=== PATIENT | male | born 1980 | race Caucasian/White ===

== ENCOUNTER 2021-11-19 09:43 | Outpatient (REF) | payer MEDICARE, MEDICAID, SELFPAY ==
[2021-11-19 11:28] LABS: Estimated Average Glucose 292 mg/dL; Hemoglobin A1c % 11.8 %
[2021-11-19 11:42] LABS: Appearance Urine CLEAR; Color Urine YELLOW; Glucose Urine UA 500 MG/DL (NEG); Leukocyte Esterase Urine NEG (NEG); Nitrite Urine NEG (NEG); Specific Gravity - Urine >= 1.030 (1.005-1.025); UACC Culture Trigger NO; Urine Blood NEG (NEG); Urine Ketones 40 MG/DL (NEG); Urine Protein 2+ MG/DL (NEG-TRACE)
[2021-11-19 11:48] LABS: Alanine Aminotransferase 79 U/L (0-40); Albumin Level 4.3 g/dL (3.5-5.0); Alkaline Phosphatase 146 U/L (39-117); Anion Gap 15 (12-20); Aspartate Amino Transferase 31 U/L (5-37); Blood Urea Nitrogen 14 mg/dL (9-16); Calcium 9.3 mg/dL (8.4-10.2); Carbon Dioxide 24 mmol/L (22-29); Chloride 96 mmol/L (96-108); Cholesterol 245 mg/dL; Estimated Glomerular Filt Rate > 60; Glucose Fasting 361 mg/dL (60-99); HDL Cholesterol 31 mg/dL; Potassium 4.7 mmol/L (3.3-5.1); Sodium 130 mmol/L (135-145); Total Protein 7.1 g/dL (6.5-8.0); Triglycerides 462 mg/dL
[2021-11-19 11:58] LABS: TSH reflex Free T4 1.97 uIU/mL (0.32-4.0)
[2021-11-19 12:04] LABS: RBC Urine 0 /HPF (0); Squamous Epithelial Cell Urine 2+ /LPF
[2021-11-19 12:16] LABS: Microalbum/Creatinine Ratio Ur 109.4 ug/mg cr
== END 2021-11-19 09:44 | disposition home or self-care (01) ==
LOC: HO.HMGCLDS 09:43
PROVIDERS: Visit Provider Nurse Practitioner Family
DX: E11.65 Type 2 diabetes mellitus with hyperglycemia (principal)
CPT/HCPCS: 36415; 80053; 80061; 81001; 82043; 83036; 84443

== ENCOUNTER 2024-02-13 13:49 | Outpatient (AMB) | payer OTHER, MEDICAID, SELFPAY ==
--- NOTE | 2024-02-13 13:54 | A.OFFPC_ITS ---
Vital Signs 02/13/24 13:57 Height 5 ft 11 in Weight 224 lb BMI 31.2 BP 130/80 Blood Pressure Location Lt brachial Position Sitting Pulse 80 Pulse Source Pulse Oximeter Pulse Oximetry (%) 98 Oxygen Delivery Method Room Air Intake Visit Reasons: diabetes follow up Intake Note: Patient here for DM f/u. Allergies UNKNOWN Allergy (Unknown, Uncoded 02/13/24 14:49) WAS TOLD HAD AN ALLERGIC REACTION TO ANESTHESIA Medication List - Last Reconciled 02/13/24 by CINTHYA Mon alcohol swabs (Alcohol Prep Pads) topical test TID; blood sugar diagnostic (FreeStyle Lite Strips) tid tesing blood-glucose meter (FreeStyle Lite Meter kit) diabetes cyclobenzaprine 10 mg PO BEDTIME PRN 20 days insulin glargine (Lantus Solostar U-100 Insulin) 35 units (0.35 mL) subcut DAILY 30 days lancets (BD Ultra-Fine II Lancets) tid testing lancets (FreeStyle Lancets) tid testing metformin 500 mg PO BID 30 days pen needle, diabetic (BD Ultra-Fine Short Pen Needle) once before bed Tobacco use date assessed: 02/13/24 Dental Screening Dental Screen Date: 02/13/24 Did you have a dental visit in the last 12 months?: Yes Did you have a dental problem in the last 6 months where you did not have access to dental care?: No Was dental information given to patient?: Patient has dentist HPI diabetes follow up HPI Details Pt is an uncontrolled diabetic. A1C in office today is >14. Due for microalbumin. Denies polyuria, polydipsia, and neuropathy. Pt denies any signs and symptoms of hypoglycemia and does know how to correct it. Pt has not been taking his insulin regularly, will resend this. Reenforced the importance of tight glucose control. Pt reports macular erythema (tinea) to his inguinal, pelvic, and left lower abdomen regions. Will assess labs and possibly treat with oral med. Pt reports a large skin tag to his back. Will refer to derm. [facility] Medical History Severe obstructive sleep apnea Xiphoidalgia Uncontrolled type 2 diabetes mellitus with hyperglycemia Family History Father No problems noted. Mother Diabetes Social History Housing: House Patient Tobacco Use Status: Current everyday Tobacco user e-Cigarette/Vaping Use: Never Used service: No Current occupational status: disabled Cognitive needs: No Hearing needs: No Vision needs: No Questionnaire PHQ-9 Over the last 2 weeks, how often have you been bothered by any of the following problems? 22026 - PHQ-9 Billing: Patient declined-do not bill Source: Developed by Drs. Hever Ortega, Gurpreet Herrera and colleagues, with an educational meliza from [employer]. Thrive Questionnaire Date Thrive assessed: 11/22/21 AUDIT C Alcohol Use Questionnaire (AUDIT-C) 1. How often do you have a drink containing alcohol?: 2-3 times a week 2. How many drinks containing alcohol do you have on a typical day when you are drinking?: 5 or 6 3. How often do you have six or more drinks on one occasion?: Never Total Score: 5 Score Reviewed/Action Taken: No TESS-7 AMB Questionnaire TESS-7 Date TESS - 7 assessed: 11/22/21 Source: Developed by Drs. Hever Ortega, Randa Crowell, Gurpreet Timmons and colleagues, with an educational meliza from [employer]. TESS-7 Assessment Billing TESS-7 Assessment Tool: pt declined-do not bill Review of Systems Const Reports as per HPI Physical exam (Primary Care) Vital Signs: Last Vital Signs Pulse 80 02/13/24 13:57 BP 130/80 02/13/24 13:57 Pulse Ox 98 02/13/24 13:57 Oxygen Delivery Method Room Air 02/13/24 13:57 BMI result Body Mass Index 31.2 Tobacco/Smoking Status: Tobacco use Status Tobacco use date assessed 02/13/24 02/13/24 14:01 Patient Tobacco Use Status Current everyday Tobacco 02/13/24 13:56 e-Cigarette/Vaping Use Never Used 02/13/24 13:56 Thrive Assessment: Date of Thrive Assessment Date Thrive assessed 11/22/21 02/13/24 13:56 Const General: cooperative Orientation/consciousness: patient oriented x3 Resp Effort & Inspection: normal respiratory effort Auscultation: clear to auscultation bilaterally Cardio Rate: regular rate Rhythm: regular rhythm Heart sounds: S1 normal heart sound present and S2 normal heart sound present Skin Other: macular erythema to inguinal, pelvic, and left lower abdomen regions (tinea), large skin tag to back Neuro General: patient oriented x3 Extrem Other: bilat feet: + sensation with use of monofilament, feet intact Psych Appearance: grossly normal Mental Status: mental status grossly normal Speech and movement: Normal speech and movement present Affect: normal affect Attitude: cooperative Thought process: Normal thought process present Thought content: Normal thought content present Insight: Good insight present (Psych) Judgement: Good judgement present (Psych) Results AMB Hemoglobin A1c AMB Hemoglobin A1c > 14.0 % Last Edit by ROSANGELA Dennis on 02/13/24 14:22 Results Reviewed Results Reviewed: Laboratory Last Values Hgb A1c (Clinic) > 14.0 % (4.0-6.0) H 02/13/24 14:21 Assessment and Plan Assessment & Plan (1) Skin tag: Code(s): L91.8 - Other hypertrophic disorders of the skin (2) Tinea: Code(s): B35.9 - Dermatophytosis, unspecified (3) Uncontrolled type 2 diabetes mellitus with hyperglycemia: Code(s): E11.65 - Type 2 diabetes mellitus with hyperglycemia Plan The patient agreed to the use of a medical equipment sales for this encounter. Scribed for CINTHYA Rodriguez by Debby Mann medical equipment sales, on 02/13/2024 at 14:25 EST. Orders: Orders AMB Hemoglobin A1c Today E11.65 - Type 2 diabetes mellitus with hyperglycemia Referrals Dermatology Referral L91.8 - Other hypertrophic disorders of the skin Medications: Refilled insulin glargine (Lantus Solostar U-100 Insulin) 35 units (0.35 mL) subcut DAILY 10.5 mL 4RF 30 days E11.65 - Type 2 diabetes mellitus with hyperglycemia Coding Level of Care Code Est Pt Level 3 (18671) Diagnoses Skin tag L91.8 Tinea B35.9 Uncontrolled type 2 diabetes mellitus with hyperglycemia E11.65
[2024-02-13 13:57] VITALS: BP 130/80; PULSE 80; O2SAT 98; BMI 31.2
== END 2024-02-13 14:56 | disposition home or self-care (01) ==
PROVIDERS: PCP Nurse Practitioner Family; Visit Provider Nurse Practitioner Family
DX: L91.8 Other hypertrophic disorders of the skin (principal); B35.9 Dermatophytosis, unspecified; E11.65 Type 2 diabetes mellitus with hyperglycemia
CPT/HCPCS: 83036; 99213

== ENCOUNTER 2024-02-13 15:22 | Outpatient (REF) | payer OTHER, MEDICAID, SELFPAY ==
[2024-02-13 15:32] LABS: MANUAL DIFF FLAG NO
[2024-02-13 16:12] LABS: Basophils Absolute Auto 0.1 X10*3/uL (0.0-0.2); Basophils Percent Auto 0.8 % (0-2); Eosinophils Absolute Auto 0.2 X10*3/uL (0.0-0.4); Eosinophils Percent Auto 1.9 % (0-4); Hematocrit 43.3 % (42.0-52.0); Hemoglobin 15.2 g/dl (14.0-18.0); Imm Gran Abs Auto 0.05 X10*3/uL (0.00-0.03); Imm Gran Pct Auto 0.6 % (0.0-0.4); Lymphocytes Absolute Auto 2.1 X10*3/uL (1.2-4.9); Lymphocytes Percent Auto 24.8 % (20-40); Mean Corpuscular HGB Conc 35.1 g/dl (31.0-36.0); Mean Corpuscular Hemoglobin 32.4 pg (27.0-33.0); Mean Corpuscular Volume 92.3 fL (80.0-98.0); Mean Platelet Volume 8.9 fL (9.4-12.4); Monocytes Absolute Auto 0.8 X10*3/uL (0.1-1.2); Neutrophils Absolute Auto 5.2 x10*3/uL (2.0-8.3); Neutrophils Percent Auto 62.9 % (45-73); Platelet Count 241 X10*3/uL (160-400); Red Blood Count 4.69 X10*6/uL (4.60-5.80); Red Cell Distribution Width 12.2 % (11.0-16.0); White Blood Count 8.3 X10*3/uL (4.8-10.8)
[2024-02-13 16:18] LABS: Estimated Average Glucose 335 mg/dL; Hemoglobin A1c % 13.3 % (<6.0)
[2024-02-13 16:21] LABS: Appearance Urine Clear; Color Urine Dark Yellow; Glucose Urine UA >=1000 mg/dL (Negative); Leukocyte Esterase Urine Negative (Negative); Nitrite Urine Negative (Negative); PH 5.5 (5.0-9.0); Specific Gravity - Urine >= 1.030 (1.005-1.025); UMIC TRIGGER UACC YES; Urine Blood Negative (Negative); Urine Ketones 80 mg/dL (Negative); Urine Protein 30 (1+) mg/dL (Neg-Trace)
[2024-02-13 16:40] LABS: Bacteria Urine None Seen (None Seen); RBC Urine 0-2 /HPF (0-2); WBC Urine 0-5 /HPF (0-5)
[2024-02-13 16:42] LABS: Alanine Aminotransferase 19 U/L (0-40); Albumin Level 4.5 g/dL (3.5-5.0); Alkaline Phosphatase 91 U/L (39-117); Anion Gap 14 (12-20); Aspartate Amino Transferase 16 U/L (5-37); Bilirubin Total 0.7 mg/dL (0.0-1.0); Blood Urea Nitrogen 10 mg/dL (9-16); Calcium 9.8 mg/dL (8.4-10.2); Carbon Dioxide 27 mmol/L (22-29); Chloride 99 mmol/L (96-108); Cholesterol 207 mg/dL (<200); Estimated Glomerular Filt Rate > 60; Glucose Fasting 304 mg/dL (60-99); HDL Cholesterol 59 mg/dL (>40); LDL Cholesterol Calculated 132 mg/dL (<100); Potassium 4.3 mmol/L (3.3-5.1); Sodium 136 mmol/L (135-145); Total Protein 7.3 g/dL (6.5-8.0); Triglycerides 82 mg/dL (<150)
[2024-02-13 16:58] LABS: TSH reflex Free T4 2.39 uIU/mL (0.32-4.0)
[2024-02-13 17:07] LABS: Creatinine Urine 412.67 mg/dL; Microalbum/Creatinine Ratio Ur 23.5 ug/mg cr (<30)
== END 2024-02-13 15:23 | disposition home or self-care (01) ==
LOC: HO.LAB 15:22
PROVIDERS: PCP Nurse Practitioner Family; Visit Provider Nurse Practitioner Family
DX: E11.65 Type 2 diabetes mellitus with hyperglycemia (principal)
CPT/HCPCS: 36415; 80053; 80061; 81001; 82043; 82570; 83036; 84443; 85025

== ENCOUNTER 2024-05-16 14:16 | Outpatient (AMB) | payer OTHER, MEDICAID, SELFPAY ==
[2024-05-16 14:18] VITALS: BP 140/78; PULSE 81; O2SAT 98; BMI 35.7
--- NOTE | 2024-05-16 14:18 | A.OFFPC_ITS ---
Vital Signs 05/16/24 14:18 Height 5 ft 11 in Weight 256 lb BMI 35.7 BP 140/78 H Blood Pressure Location Lt brachial Position Sitting Pulse 81 Pulse Source Pulse Oximeter Pulse Oximetry (%) 98 Intake Visit Reasons: 3 month f/u Intake Note: pt is here for 3 month follow up [employer]bm Mainframe Developer Required: No Accompanied by: Self / Same As Patient Allergies UNKNOWN Allergy (Unknown, Uncoded 05/16/24 14:19) WAS TOLD HAD AN ALLERGIC REACTION TO ANESTHESIA Medication List - Last Reconciled 05/16/24 by CINTHYA Mon blood sugar diagnostic (MapH[employer] Verio test strips) Test blood sugar once a day blood-glucose meter ([employer] Verio Reflect Meter) Test blood sugar once a day lancets ([employer] Delica Plus Lancet) Test blood sugar once a day lancets tid testing pen needle, diabetic (BD Ultra-Fine Short Pen Needle) once before bed sildenafil 25 mg PO DAILY PRN Tresiba FlexTouch U-200 (insulin degludec) 35 units (0.175 mL) subcut DAILY NS Tobacco use date assessed: 02/13/24 Dental Screening Dental Screen Date: 02/13/24 HPI 3 month f/u HPI Details Pt is a diabetic. A1C in office today is 5.9. Microalbumin is up to date. Denies polyuria, polydipsia, and neuropathy. Pt denies any signs and symptoms of hypoglycemia and does know how to correct it. Will start low-dose atorvastatin and lisinopril. Due for eye exam, will refer. Tolerating tresiba well [facility] Medical History Severe obstructive sleep apnea Xiphoidalgia Uncontrolled type 2 diabetes mellitus with hyperglycemia Family History Father No problems noted. Mother Diabetes Social History Housing: House Patient Tobacco Use Status: Current everyday Tobacco user e-Cigarette/Vaping Use: Never Used service: No Current occupational status: disabled Cognitive needs: No Hearing needs: No Vision needs: No Questionnaire PHQ-9 Over the last 2 weeks, how often have you been bothered by any of the following problems? 1. Little interest or pleasure in doing things: not at all 2. Feeling down, depressed, or hopeless: not at all 3. Trouble falling or staying asleep, or sleeping too much: not at all 4. Feeling tired or having little energy: not at all 5. Poor appetite or overeating: not at all 6. Feeling bad about yourself - or that you are a failure or have let yourself or your family down: not at all 7. Trouble concentrating on things, such as reading the newspaper or watching television: not at all 8. Moving or speaking so slowly that other people could have noticed. Or the opposite - being so fidgety or restless that you have been moving around a lot more than usual: not at all 9. Thoughts that you would be better off or of hurting yourself in some way: not at all Total score: 0 Depression Screening Interpretation: Negative Depression Screening Done: Yes 28597 - PHQ-9 Billing: Yes Source: Developed by Drs. Hever Ortega, Randa Crowell, Gurpreet Timmons and colleagues, with an educational meliza from [employer]. Thrive Questionnaire Date Thrive assessed: 05/16/24 I am a: Patient What is your living situation today?: I have a steady place to live Within the past 12 months, did the food you bought not last and you didn't have the money to get more?: Sometimes True Within the past 12 months, did you worry whether your food would run out before you got money to buy more?: Sometimes True Do you have trouble paying for medicines?: No Do you have trouble getting transportation to medical appointments?: No Do you have trouble paying your heating and electricity bill?: Yes Do you have trouble taking care of your child, family member or friend?: No Do you have trouble with day-to-day activities such as bathing, preparing meals, shopping, managing finances, etc.?: No Are you interested in more education?: No Please select the resources that you would like help with: None Currently or been in a relationship where the following occur: I choose not to answer THRIVE Score: 3 AUDIT C Alcohol Use Questionnaire (AUDIT-C) 1. How often do you have a drink containing alcohol?: Monthly or less 2. How many drinks containing alcohol do you have on a typical day when you are drinking?: 1 or 2 3. How often do you have six or more drinks on one occasion?: Never Total Score: 1 Score Reviewed/Action Taken: Yes TESS-7 AMB Questionnaire TESS-7 Date TESS - 7 assessed: 05/16/24 Feeling nervous, anxious, or on edge: 0 = Not at all Not being able to stop or control worryin = Not at all Worrying too much about different things: 0 = Not at all Trouble relaxin = Not at all Being so restless that it is hard to sit still: 0 = Not at all Becoming easily annoyed or irritable: 0 = Not at all Feeling afraid as if something awful might happen: 0 = Not at all Total TESS-7 score (0-4 normal; 5-9 mild; 10-14 moderate; 15-21 severe): 0 Source: Developed by Drs. Hever Ortega, Randa Crowell, Gurpreet Timmons and colleagues, with an educational meliza from [employer]. TESS-7 Assessment Billing TESS-7 Assessment Tool: TESS-7 Assessment 67245 Review of Systems Const Reports as per HPI Physical exam (Primary Care) Vital Signs: Last Vital Signs Pulse 81 05/16/24 14:18 BP 140/78 H 05/16/24 14:18 Pulse Ox 98 05/16/24 14:18 BMI result Body Mass Index 35.7 Tobacco/Smoking Status: Tobacco use Status Tobacco use date assessed 02/13/24 05/16/24 14:20 Patient Tobacco Use Status Current everyday Tobacco 05/16/24 14:20 e-Cigarette/Vaping Use Never Used 05/16/24 14:20 PHQ-9: PHQ-9 Score PHQ-9: Total score 0 05/16/24 14:56 Depression Screening Interpretation: Negative Thrive Assessment: Date of Thrive Assessment Date Thrive assessed 05/16/24 05/16/24 14:20 Currently or been in a relationship where the following occur: I choose not to answer Const General: cooperative Nutritional Appearance: obese Orientation/consciousness: patient oriented x3 Resp Effort & Inspection: normal respiratory effort Auscultation: clear to auscultation bilaterally Cardio Rate: regular rate Rhythm: regular rhythm Heart sounds: S1 normal heart sound present and S2 normal heart sound present Neuro General: patient oriented x3 Extrem Other: bilat feet: + sensation with use of monofilament, feet intact Psych Appearance: grossly normal Mental Status: mental status grossly normal Speech and movement: Normal speech and movement present Affect: normal affect Attitude: cooperative Thought process: Normal thought process present Thought content: Normal thought content present Insight: Good insight present (Psych) Judgement: Good judgement present (Psych) Results AMB Hemoglobin A1c AMB Hemoglobin A1c 5.9 % Last Edit by Armen Leyva CMA on 05/16/24 14: 44 Results Reviewed Results Reviewed: Laboratory Last Values Hgb A1c (Clinic) 5.9 % (4.0-6.0) 05/16/24 14:44 Coding Level of Care Code Est Pt Level 3 (98516) Diagnoses Diabetes E11.9 Additional Codes TESS-7 Assessment Billing - TESS-7 Assessment Tool: TESS-7 Assessment 64474 ([id number]) Assessment & Plan Assessment & Plan (1) Diabetes: Code(s): E11.9 - Type 2 diabetes mellitus without complications Category: Medical Plan: 6 month follow up, starting lisinopril and atorvastatin Plan The patient agreed to the use of a director of medical review for this encounter. Scribed for ROSHNI Rodriguez by Debby Mann director of medical review, on 05/16/2024 at 14:45 EST. Orders: Orders Comprehensive Lynn. Panel Fast Today E11.9 - Type 2 diabetes mellitus without complications AMB Hemoglobin A1c Today Z13.9 - Encounter for screening, unspecified Complete Blood Count Auto Diff Today E11.9 - Type 2 diabetes mellitus without complications TSH reflex Free T4 Today E11.9 - Type 2 diabetes mellitus without complications UA CC w/rflx Micro + Cult Today E11.9 - Type 2 diabetes mellitus without complications Lipid Panel Today E11.9 - Type 2 diabetes mellitus without complications Referrals Ophthalmology Referral E11.9 - Type 2 diabetes mellitus without complications Medications: New sildenafil administer 30 minutes to 4 hours before activity 25 mg PO DAILY PRN 10 tabs 0RF sexual activity atorvastatin 10 mg PO BEDTIME 90 tabs 0RF lisinopril 10 mg PO DAILY 90 tabs 0RF Changed From lancets (BD Ultra-Fine II Lancets) tid testing 100 ea 0RF E11.65 - Type 2 diabetes mellitus with hyperglycemia To lancets tid testing 100 ea 0RF E11.65 - Type 2 diabetes mellitus with hyperglycemia Refilled pen needle, diabetic (BD Ultra-Fine Short Pen Needle) once before bed 100 ea 3RF E11.65 - Type 2 diabetes mellitus with hyperglycemia Tresiba FlexTouch U-200 (insulin degludec) 35 units (0.175 mL) subcut DAILY 18 mL 1RF NS
== END 2024-05-16 14:56 | disposition home or self-care (01) ==
PROVIDERS: PCP Nurse Practitioner Family; Visit Provider Nurse Practitioner Family
DX: E11.9 Type 2 diabetes mellitus without complications (principal); Z13.9 Encounter for screening, unspecified

== ENCOUNTER → 2024-05-16 14:16 | Outpatient (BNVA) | payer OTHER, MEDICAID, SELFPAY | PROVIDERS: PCP Nurse Practitioner Family; Visit Provider Nurse Practitioner Family | DX: E11.9 Type 2 diabetes mellitus without complications (principal) | CPT/HCPCS: 83036; 96127; 99212 ==

== ENCOUNTER 2025-08-01 09:01 | Outpatient (REF) | payer MEDICARE, SELFPAY ==
[2025-08-01 10:15] LABS: MANUAL DIFF FLAG NO
[2025-08-01 10:22] LABS: Appearance Urine Clear; Glucose Urine UA Negative (Negative); PH 8.5 (5.0-9.0); Specific Gravity - Urine 1.020 (1.005-1.025)
[2025-08-01 10:32] LABS: Hematocrit 42.7 % (42.0-52.0); Hemoglobin 14.2 g/dl (14.0-18.0); Imm Gran Abs Auto 0.07 X10*3/uL (0.00-0.03); Imm Gran Pct Auto 0.8 % (0.0-0.4); Lymphocytes Absolute Auto 2.1 X10*3/uL (1.2-4.9); Mean Corpuscular HGB Conc 33.3 g/dl (31.0-36.0); Mean Corpuscular Hemoglobin 30.0 pg (27.0-33.0); Mean Corpuscular Volume 90.3 fL (80.0-98.0); NRBC Abs Auto 0.000 X10*3/uL (0.0-0.012); NRBC Pct Auto 0.0 /100WBC (0.0-0.2); Platelet Count 276 X10*3/uL (160-400); Red Blood Count 4.73 X10*6/uL (4.60-5.80); White Blood Count 9.1 X10*3/uL (4.8-10.8)
[2025-08-01 10:59] LABS: Hemoglobin A1C 149.1537 umol/L
[2025-08-01 11:05] LABS: Alanine Aminotransferase 26 U/L (0-40); Albumin Level 4.8 g/dL (3.5-5.0); Alkaline Phosphatase 84 U/L (39-117); Anion Gap 14 (12-20); Aspartate Amino Transferase 29 U/L (5-37); Blood Urea Nitrogen 11 mg/dL (9-16); Calcium 9.9 mg/dL (8.4-10.2); Carbon Dioxide 28 mmol/L (22-29); Chloride 101 mmol/L (96-108); Cholesterol 158 mg/dL (<200); Estimated Glomerular Filt Rate > 60; HDL Cholesterol 58 mg/dL (>40); Potassium 4.6 mmol/L (3.3-5.1); Sodium 138 mmol/L (135-145); Total Protein 7.3 g/dL (6.5-8.0); Triglycerides 79 mg/dL (<150)
== END 2025-08-01 09:02 | disposition home or self-care (01) ==
LOC: HO.HMGCLDS 09:01
PROVIDERS: PCP Nurse Practitioner Family; Visit Provider Nurse Practitioner Family
DX: E11.65 Type 2 diabetes mellitus with hyperglycemia (principal)
CPT/HCPCS: 36415; 80053; 80061; 81003; 82570; 83036; 84443; 85025

== ENCOUNTER 2025-08-06 15:47 | Outpatient (AMB) | payer MEDICARE, MEDICAID, SELFPAY ==
--- NOTE | 2025-08-06 15:52 | MHC.PC.OV ---
Vital Signs 08/06/25 15:53 Height 5 ft 11 in Weight 264 lb BMI 36.8 BP 120/68 Blood Pressure Location Lt brachial Position Sitting Respiration 16 Pulse 65 Pulse Source Pulse Oximeter Pulse Oximetry (%) 97 Oxygen Delivery Method Room Air Intake Visit Reasons: Annual PE - see comments Forging Dies Final Finisher Required: No Accompanied by: Self / Same As Patient Allergies UNKNOWN Allergy (Unknown, Uncoded 08/06/25 17:09) WAS TOLD HAD AN ALLERGIC REACTION TO ANESTHESIA Medication List - Last Reconciled 08/06/25 by CINTHYA Mon atorvastatin 10 mg PO BEDTIME blood sugar diagnostic (OneTwoSeeTouch Verio test strips) Test blood sugar once a day blood-glucose meter (Ripstoneuch Verio Reflect Meter) Test blood sugar once a day lancets (OneTwoSeeTouch Delica Plus Lancet) Test blood sugar once a day lisinopril 10 mg PO DAILY pen needle, diabetic (BD Ultra-Fine Short Pen Needle) once before bed sildenafil 25 mg PO DAILY PRN Tresiba FlexTouch U-200 (insulin degludec) 35 units (0.175 mL) subcut DAILY NS Tobacco use date assessed: 08/06/25 Dental Screening Dental Screen Date: 08/06/25 Did you have a dental visit in the last 12 months?: Yes Did you have a dental problem in the last 6 months where you did not have access to dental care?: No Was dental information given to patient?: Patient has dentist HPI Annual PE - see comments HPI Details History of Present Illness The patient is a 45 year old male presenting for a physical exam. He reports doing quite well. He has a history of diabetes and experiences intermittent neuropathy, primarily in his toes. His recent laboratory results show significant improvement, with his HbA1c decreasing to 5.8% from 13.3% in February 2024. His LDL cholesterol has also dropped to 85 mg/dL from 132 mg/dL. He has completely quit drinking alcohol, which has contributed to these improvements. He complains of onychomycosis, predominantly on the left side, and general foot pains. His occupation involves installing floors regularly. He also has a large skin tag on his left upper back. His kidney and thyroid functions are normal. He smokes cigarettes but is working on quitting. He needs an eye exam and has declined all vaccinations. Health Maintenance - Significant improvement in glycemic control, with HbA1c dropping from 13.3% to 5.8%. - Marked improvement in lipid profile, with LDL cholesterol decreasing from 132 mg/dL to 85 mg/dL. - Patient has quit drinking alcohol completely. - Patient smokes cigarettes and is actively working on cessation. - Patient is due for an eye exam; a referral will be placed. - Patient has declined all vaccinations. Social History - Employment: Installs floors on a regular basis. - Substance Use: Has quit drinking alcohol completely. - Substance Use: Smokes cigarettes and is working on quitting. Review of Systems - Constitutional: Reports doing quite well. - Cardiovascular: Denies chest pain. - Respiratory: Denies shortness of breath. - Gastrointestinal: Denies abdominal pain, blood in stool, constipation, and diarrhea. - Neurological: Reports intermittent neuropathy, primarily affecting the toes. - Musculoskeletal: Reports general foot pains. - Integumentary: Complains of onychomycosis. - Psychiatric: Denies suicidal and homicidal ideation. Physical Exam General: Cooperative, healthy appearing, comfortable, no acute distress and well developed Orientation: Patient oriented x3 Limitations: No limitations Head: Normal to inspection Ears: Hearing grossly normal bilaterally Nose: Normal external nose present Face and sinus: Normal facial exam Eyes: Appearance normal, both eyes and all related structures Neck: Normal visual inspection and Yes full ROM Respiratory: Normal respiratory effort and able to speak in complete sentences. Clear to auscultation bilaterally Cardiovascular: Regular rate and rhythm. Normal S1 and S2 GI: Normal to inspection. Soft to palpation and nontender Skin: No rashes or lesions noted, large skin tag to left upper back Neuro: Patient oriented x3, reports intermittent neuropathy, mostly in toes, positive sensation with monofilament, can feel tuning fork vibration 128. Extremities: Normal to inspection, onychomycosis noted mostly on the left side, some foot pains reported in general Results - Labs: - Hemoglobin A1c: 5.8% (previously 13.3% in February 2024). - LDL Cholesterol: 85 mg/dL (previously 132 mg/dL). - Kidney function: Normal. - Thyroid function: Normal. Plan 1. Type 2 Diabetes Mellitus Without Complications The patient's diabetes is now well-controlled, as evidenced by a recent HbA1c of 5.8%, a significant decrease from 13.3%. This improvement is attributed to his complete cessation of alcohol. Despite good glycemic control, he continues to have intermittent neuropathy in his toes. Given his diabetes and foot complaints, a referral to a wood repatcher will be placed. A referral for a diabetic eye exam will also be placed. 2. Onychomycosis The patient has onychomycosis, noted mostly on the left side, and wishes to have it addressed. He will be referred to a wood repatcher for further evaluation and management of this condition. 3. Hyperlipidemia, Unspecified The patient's hyperlipidemia has shown remarkable improvement, with his LDL dropping from 132 mg/dL to 85 mg/dL. This is largely due to lifestyle changes, specifically quitting alcohol. Continue current management and support for healthy lifestyle choices. 4. Skin Tag A large skin tag was noted on the patient's left upper back. A referral will be placed with dermatology for removal. 5. Foot Pain The patient reports general foot pains, which may be related to his occupation of installing floors. A referral to podiatry is warranted for evaluation, particularly given his concurrent diabetes. 6. Nicotine Dependence, Cigarettes, Uncomplicated The patient continues to smoke cigarettes but is motivated and actively working on quitting. He will be encouraged to continue his cessation efforts. Discussion Notes I commended the patient on his impressive laboratory improvements, specifically noting the significant drop in his HbA1c and LDL cholesterol. I reinforced that quitting alcohol was a major factor in this success. We discussed his complaints of onychomycosis and general foot pains, and I explained that a podiatry referral would be appropriate for evaluation, particularly due to his diabetes and occupation. I informed him that I would place referrals for podiatry, dermatology for his skin tag removal, and for a needed eye exam. We also briefly touched on his ongoing efforts to quit smoking. Patient Instructions - Your recent lab work is very impressive, showing great improvement in your blood sugar and cholesterol levels. Quitting alcohol has made a huge difference, so please continue to avoid it. - I am putting in a referral to a foot doctor (wood repatcher) to look at your toenail fungus and foot pain. This is important because you have diabetes. - I am also putting in a referral for you to get an eye exam, which is a necessary part of your diabetes care. - I will refer you to a skin doctor (associate professor of surgery) to have the large skin tag on your back removed. - Continue your efforts to quit smoking. [facility] Medical History Severe obstructive sleep apnea Xiphoidalgia Uncontrolled type 2 diabetes mellitus with hyperglycemia Family History Father No problems noted. Mother Diabetes Social History Housing: House Patient Tobacco Use Status: Current everyday Tobacco user e-Cigarette/Vaping Use: Never Used service: No Current occupational status: disabled Cognitive needs: No Hearing needs: No Vision needs: No Questionnaire PHQ-9 Over the last 2 weeks, how often have you been bothered by any of the following problems? 1. Little interest or pleasure in doing things: not at all 2. Feeling down, depressed, or hopeless: not at all 3. Trouble falling or staying asleep, or sleeping too much: not at all 4. Feeling tired or having little energy: not at all 5. Poor appetite or overeating: not at all 6. Feeling bad about yourself - or that you are a failure or have let yourself or your family down: not at all 7. Trouble concentrating on things, such as reading the newspaper or watching television: not at all 8. Moving or speaking so slowly that other people could have noticed. Or the opposite - being so fidgety or restless that you have been moving around a lot more than usual: not at all 9. Thoughts that you would be better off or of hurting yourself in some way: not at all Total score: 0 Depression Screening Interpretation: Negative Depression Screening Done: Yes 39770 - PHQ-9 Billing: Yes Source: Developed by Drs. Hever Ortega, Randa Crowell, Gurpreet Timmons and colleagues, with an educational meliza from [email or web address]. Thrive Questionnaire Date Thrive assessed: 05/16/24 I am a: Patient What is your living situation today?: I have a steady place to live Within the past 12 months, did the food you bought not last and you didn't have the money to get more?: Often true Within the past 12 months, did you worry whether your food would run out before you got money to buy more?: Sometimes True Do you have trouble paying for medicines?: No Do you have trouble getting transportation to medical appointments?: No Do you have trouble paying your heating and electricity bill?: No Do you have trouble taking care of your child, family member or friend?: No Do you have trouble with day-to-day activities such as bathing, preparing meals, shopping, managing finances, etc.?: No Are you currently unemployed and looking for a job?: No Are you interested in more education?: No Currently or been in a relationship where the following occur: No concerns reported THRIVE Score: 2 AUDIT C Alcohol Use Questionnaire (AUDIT-C) 1. How often do you have a drink containing alcohol?: Never Total Score: 0 TESS-7 AMB Questionnaire TESS-7 Date TESS - 7 assessed: 08/06/25 Feeling nervous, anxious, or on edge: 0 = Not at all Not being able to stop or control worryin = Not at all Worrying too much about different things: 0 = Not at all Trouble relaxin = Not at all Being so restless that it is hard to sit still: 0 = Not at all Becoming easily annoyed or irritable: 0 = Not at all Feeling afraid as if something awful might happen: 0 = Not at all Total TESS-7 score (0-4 normal; 5-9 mild; 10-14 moderate; 15-21 severe): 0 Source: Developed by Drs. Hever Ortega, Randa Crowell, Gurpreet Timmons and colleagues, with an educational meliza from [email or web address]. TESS-7 Assessment Billing TESS-7 Assessment Tool: TESS-7 Assessment 51265 Physical exam (Primary Care) Vital Signs: Last Vital Signs Pulse 65 08/06/25 15:53 Resp 16 08/06/25 15:53 BP 120/68 08/06/25 15:53 Pulse Ox 97 08/06/25 15:53 Oxygen Delivery Method Room Air 08/06/25 15:53 BMI result Body Mass Index 36.8 Tobacco/Smoking Status: Tobacco use Status Tobacco use date assessed 08/06/25 08/06/25 16:06 Patient Tobacco Use Status Current everyday Tobacco 08/06/25 15:52 e-Cigarette/Vaping Use Never Used 08/06/25 15:52 PHQ-9: PHQ-9 Score PHQ-9: Total score 0 08/06/25 16:06 Depression Screening Interpretation: Negative Thrive Assessment: Date of Thrive Assessment Date Thrive assessed 05/16/24 08/06/25 15:52 Currently or been in a relationship where the following occur: No concerns reported Coding Level of Care Code Est Pt Level 3 (46964) Est Pt Prev Care 40-64y(27204) Diagnoses Diabetes E11.9 Onychomycosis B35.1 Encounter for routine adult physical exam with abnormal findings Z00.01 Additional Codes TESS-7 Assessment Billing - TESS-7 Assessment Tool: TESS-7 Assessment 31412 ([id number]) PHQ-9 - 50795 - PHQ-9 Billing: Yes ([id number]) Assessment & Plan Assessment & Plan (1) Diabetes: Code(s): E11.9 - Type 2 diabetes mellitus without complications Category: Medical (2) Onychomycosis: Code(s): B35.1 - Tinea unguium Category: Medical (3) Encounter for routine adult physical exam with abnormal findings: Code(s): Z00.01 - Encounter for general adult medical examination with abnormal findings Category: Medical Plan . Orders: Referrals Podiatry Referral B35.1 - Tinea unguium, E11.9 - Type 2 diabetes mellitus without complications
[2025-08-06 15:53] VITALS: BP 120/68; PULSE 65; RESP 16; O2SAT 97; BMI 36.8
== END 2025-08-06 16:38 | disposition home or self-care (01) ==
PROVIDERS: PCP Nurse Practitioner Family; Visit Provider Nurse Practitioner Family
DX: Z00.01 Encounter for general adult medical examination with abnormal findings (principal); E11.9 Type 2 diabetes mellitus without complications; M79.671 Pain in right foot; M79.672 Pain in left foot; F17.210 Nicotine dependence, cigarettes, uncomplicated; B35.1 Tinea unguium

== ENCOUNTER → 2025-08-06 15:47 | Outpatient (BNVA) | payer MEDICARE, MEDICAID, SELFPAY | PROVIDERS: PCP Nurse Practitioner Family; Visit Provider Nurse Practitioner Family | DX: Z00.01 Encounter for general adult medical examination with abnormal findings (principal); E11.9 Type 2 diabetes mellitus without complications; B35.1 Tinea unguium | CPT/HCPCS: 96127; 99396 ==